=== PATIENT | female | born 1990 | race Hispanic/Latino ===

== ENCOUNTER 2017-07-31 18:52 | Emergency (ER) | payer SELFPAY ==
[2017-07-31] MEDS ORDERED: Penicillin V Potassium 250 MG TAB ONE (19:34)
== END 2017-07-31 19:43 | disposition home or self-care (01) ==
LOC: SCSER 18:52
DX: K04.7 Periapical abscess without sinus (principal)
CPT/HCPCS: 99283

== ENCOUNTER 2021-06-16 13:31 | Outpatient (CLI) | payer BC | END 2021-06-16 13:32 | disposition home or self-care (01) | LOC: BICULT 13:31 | PROVIDERS: ATTEND Family Medicine | DX: N92.0 Excessive and frequent menstruation with regular cycle (principal) | CPT/HCPCS: 76856; 93976 ==